=== PATIENT | female | born 1950 | race Caucasian/White ===

== ENCOUNTER 2018-09-16 12:35 | Day surgery (SDC) | payer MEDICARE, OTHER ==
[2018-09-16] MEDS ORDERED: LIDOCAINE 2% MDV (20MG/ML) 20ML VIAL IV ONE (12:36)
--- NOTE | 2018-09-20 10:30 | Operative Note ---
DATE OF SURGERY: 09/16/18 OPERATION: COLONOSCOPY with cold snare polypectomy and cold forceps polypectomy. PREOPERATIVE DIAGNOSIS: Colon cancer screening, average risk. POSTOPERATIVE DIAGNOSES: 1. Mild sigmoid diverticulosis. 2. Transverse colon polyp. 3. Sigmoid colon polyp. PREPARATION QUALITY: Good to excellent. ESTIMATED BLOOD LOSS: Minimum. SPECIMENS: Transverse colon and descending colon. COMPLICATIONS: None apparent. PROCEDURE: After informed consent was obtained from the patient, she was placed in the left lateral decubitus position in the endoscopy suite, sedated and monitored by the department of anesthesia. Digital rectal exam was unremarkable. A well-lubricated [id number] colonoscope was inserted into the rectum and advanced to the cecum. Preparation quality was good to excellent. The cecum, cecal bulb, ileocecal valve, appendiceal orifice, and ascending colon were unremarkable. In the [id number] transverse colon there was a sessile polyp approximately 5 mm in diameter removed with a cold snare. Minimal bleeding was noted. The polyp was retrieved without incident. The descending colon revealed another diminutive polyp removed with a cold forceps. The remainder of the descending colon was unremarkable. The sigmoid colon demonstrated scattered diverticula. No inflammation, polyps, mass lesions were seen. The rectum was unremarkable in forward and in J-turn views. The endoscope was straightened, the rectal ampulla deflated, and the endoscope was removed. RECOMMENDATIONS: I would suggest the patient follow a high-fiber diet. She will require repeat colonoscopy in 5 years. As always, thank you for allowing me to participate in the healthcare of your patients. CC: DO [place] Guy
== END 2018-09-16 14:15 | disposition home or self-care (01) ==
LOC: HOP 12:35
PROVIDERS: ATTEND Internal Medicine Gastroenterology
DX: Z12.11 Encounter for screening for malignant neoplasm of colon (principal); D12.5 Benign neoplasm of sigmoid colon; D12.3 Benign neoplasm of transverse colon; K57.30 Diverticulosis of large intestine without perforation or abscess without bleeding; E78.00 Pure hypercholesterolemia, unspecified